=== PATIENT | male | born 1945 | race Caucasian/White ===

== ENCOUNTER → 2018-03-26 | Outpatient (CLI) | payer OTHER ==
[~2018-03-26] MED LIST: ATOR40TA71 PO; CARV12.511 PO; MELO-108 PO; TIZA2TAB4 PO
== END | disposition home or self-care (01) ==
LOC: RAH 12:24 → EDBD 13:00
PROVIDERS: ATTEND Urology
DX: K57.30 Diverticulosis of large intestine without perforation or abscess without bleeding (principal); N20.0 Calculus of kidney; K42.9 Umbilical hernia without obstruction or gangrene
CPT/HCPCS: 74176

== ENCOUNTER 2022-10-15 03:20 | Emergency (ER) | payer OTHER ==
[~2022-10-15 03:20] MED LIST changes: +TIZA-194 PO; -TIZA2TAB4 PO
[2022-10-15] MEDS ORDERED: HALOPERIDOL INJ 5 MG/ML VIAL ONE (03:27)
== END 2022-10-15 19:39 | disposition left against medical advice (07) ==
LOC: EDH 03:20
DX: R06.6 Hiccough (principal); Z53.21 Procedure and treatment not carried out due to patient leaving prior to being seen by health care provider
CPT/HCPCS: J1630